=== PATIENT | male | born 1990 | race Caucasian/White ===

== ENCOUNTER 2020-09-30 13:08 | Emergency (ER) | payer OTHER ==
[2020-09-30] MEDS ORDERED: HEPATITIS B VIRUS VACCINE-PF 40 MCG/1 ML VIAL IM ONE (13:29)
[2020-09-30] MEDS ORDERED: HEPATITIS B IMMUNE GLOBULIN 5 ML VIAL IM ONE (13:31)
[2020-09-30 13:35] VITALS: BP 125/71; PULSE 77; BMI 24.0
[2020-09-30] MEDS ORDERED: HEPATITIS B VIRUS VACCINE-PF 20 MCG/1ML PRE-FILLED SYRINGE IM ONE (14:02)
== END 2020-09-30 14:28 | disposition home or self-care (01) ==
LOC: JER 13:08 → JERFT 13:08
PROC: 3E0234Z Introduction of Serum, Toxoid and Vaccine into Muscle, Percutaneous Approach (ICD-10-PCS; principal; 2020-09-30)
DX: Z23 Encounter for immunization (principal)
CPT/HCPCS: 90471; 99284-25

== ENCOUNTER 2020-10-31 16:23 | Emergency (ER) | payer OTHER ==
[2020-10-31 16:38] VITALS: BP 127/84; PULSE 62; TEMP 98.5; BMI 23.6
[2020-10-31] MEDS ORDERED: HEPATITIS B VIRUS VACCINE-PF 20 MCG/1ML PRE-FILLED SYRINGE IM ONE (16:56)
== END 2020-10-31 17:36 | disposition home or self-care (01) ==
LOC: JERFT 16:23
PROC: 3E0234Z Introduction of Serum, Toxoid and Vaccine into Muscle, Percutaneous Approach (ICD-10-PCS; principal; 2020-10-31)
DX: Z23 Encounter for immunization (principal)
CPT/HCPCS: 90471; 99284-25